=== PATIENT | female | born 1955 | race Two or more races ===

== ENCOUNTER 2024-12-09 06:52 | Emergency (ER) | payer MEDICAID, OTHER ==
[~2024-12-09] VITALS: Ht 157.5 cm; Wt 1.0 kg
[~2024-12-09 06:52] MED LIST: [UNRECOGNIZED DRUG - REMARK]
[2024-12-09 07:35] LABS: BASOPHILS % (AUTO) 0.7 % (0.0-2.0); EOSINOPHILS % (AUTO) 3.7 % (1.0-6.0); HEMATOCRIT 40.9 % (36-46); HEMOGLOBIN 13.8 g/dL (12.0-16.0); MEAN CORPUSCULAR HEMOGLOBIN 30.9 pg (26.0-34.0); MEAN CORPUSCULAR HGB CONC 33.6 G/dL (31.0-37.0); MEAN CORPUSCULAR VOLUME 92 fL (80-100); MONOCYTES # (AUTO) 0.4 K/uL (0.1-1.0); MONOCYTES % (AUTO) 8.2 % (2.0-9.0); NEUTROPHILS # (AUTO) 1.9 K/uL (1.8-7.7); NEUTROPHILS % (AUTO) 43.4 % (40.0-70.0); PLATELET COUNT (AUTO) 181 K/uL (150-450); RED BLOOD CELL COUNT(AUTO) 4.46 MIL/uL (4.00-5.20); RED CELL DISTRIBUTION WIDTH 13.2 % (11.5-14.5); WHITE BLOOD COUNT (AUTO) 4.4 K/uL (4.5-11.0)
[2024-12-09 07:45] LABS: ANION GAP 8 mmol/L (8-16); CALCIUM, TOTAL 9.5 mg/dL (8.8-10.5); CARBON DIOXIDE 25 mmol/L (22-29); CHLORIDE 101 mmol/L (98-107); CREATININE 0.92 mg/dL (0.60-1.30); GLOMERULAR FILTR. RATE CALC > 60 mL/min (>60); GLUCOSE,RANDOM 115 mg/dL (70-110); POTASSIUM 3.6 mmol/L (3.5-5.1); SODIUM SERUM 134 mmol/L (136-145); UREA NITROGEN, BLOOD 14 mg/dL (7-18)
[2024-12-09 07:47] LABS: PROTHROMBIN TIME 11.1 SEC (9.4-11.6)
[2024-12-09] MEDS ORDERED: IOHEXOL 350 MG/ML 100 ML VIAL ONE (07:57)
[2024-12-09] MEDS ORDERED: SODIUM CHLORIDE 0.9% 100 ML ONE (07:57)
[2024-12-09 08:00] LABS: ALANINE AMINOTRANSFERASE 30 U/L (12-78); ALBUMIN 3.8 g/dL (3.4-5.0); ALKALINE PHOSPHATASE 79 U/L (46-116); ASPARTATE AMINOTRANSFERASE 29 U/L (15-37); BILIRUBIN,TOTAL 0.6 mg/dL (0.1-1.0); CHOL/HDL RATIO 3.2 (3.9-5.7); CHOLESTEROL 173 mg/dL (131-200); HDL CHOLESTEROL 54 mg/dL (40-60); LDL CHOL (CALC.) 100 mg/dL (0-130); TOTAL PROTEIN, SERUM 7.8 g/dL (6.4-8.2); TRIGLYCERIDES 94 mg/dL (15-150)
[2024-12-09 08:02] LABS: TROPONIN I-HIGH SENSITIVITY 4 ng/L (<51)
[2024-12-09] MEDS: ONDANSETRON HCL 4 MG/2 ML VIAL IVP ONE (08:03)
[2024-12-09] MEDS: ASPIRIN 81 MG CHEWABLE TABLET PO ONE (08:27)
[2024-12-09] MEDS: CLOPIDOGREL BISULFATE 75 MG TABLET PO ONE (08:27)
[2024-12-09 08:38] LABS: APPEARANCE,URINE CLEAR (CLEAR); BILIRUBIN,URINE NEGATIVE (NEGATIVE); COLOR,URINE LIGHT YELLOW (YELLOW); GLUCOSE, URINE (UA) NEGATIVE (NEGATIVE); KETONES,URINE NEGATIVE (NEGATIVE); LEUKOCYTE ESTERASE ,URINE NEGATIVE (NEGATIVE); NITRATE,URINE NEGATIVE (NEGATIVE); OCCULT BLOOD,URINE NEGATIVE (NEGATIVE); PH,URINE 6.5 (5.0-8.0); PH,URINE DRUG SCREEN 6.5 (5.0-8.0); PROTEIN,URINE NEGATIVE (NEGATIVE); SPECIFIC GRAVITIY, URINE 1.041 (1.003-1.030); UROBILINOGEN,URINE <=1.0 mg/dL (<=1.0)
[2024-12-09 08:46] LABS: ALCOHOL, URINE DRUG SCREEN NEGATIVE (NEGATIVE); AMPHET/METH SCREEN,URINE NEGATIVE (NEGATIVE); BARBITURATE SCREEN, URINE NEGATIVE (NEGATIVE); BENZODIAZEPINES SCREEN,URINE NEGATIVE (NEGATIVE); CANNABINOID SCREEN,URINE NEGATIVE (NEGATIVE); COCAINE SCREEN,URINE NEGATIVE (NEGATIVE); METHADONE SCREEN, URINE NEGATIVE (NEGATIVE); OPIATE SCREEN,URINE NEGATIVE (NEGATIVE); PHENCYCLIDINE SCREEN,URINE NEGATIVE (NEGATIVE)
[2024-12-09 08:50] LABS: COVID AG,FIA SOURCE NASAL SWAB
[2024-12-09 08:56] LABS: BACTERIA,URINE None Seen /HPF (None Seen); RBC,URINE None Seen /HPF (0-2); SQUAMOUS EPITHELIAL CELL,UR None Seen /LPF (None Seen); WBC,URINE 0-2 /HPF (0-5)
[2024-12-09 09:16] LABS: INFLUENZA TYPE A NEGATIVE FOR TYPE A (NEGATIVE); INFLUENZA TYPE B NEGATIVE FOR TYPE B (NEGATIVE); SARS-COV2 (COVID) ANTIGEN,FIA Negative (Negative)
[2024-12-09 11:17] VITALS: BP 139/67; PULSE 60; RESP 18; O2SAT 97
== END 2024-12-09 11:40 | disposition short-term general hospital (02) ==
LOC: EMS 06:53
DX: I63.9 Cerebral infarction, unspecified (principal); R53.1 Weakness; F41.9 Anxiety disorder, unspecified; R47.81 Slurred speech; I10 Essential (primary) hypertension; Z88.0 Allergy status to penicillin; Z20.822 Contact with and (suspected) exposure to COVID-19
CPT/HCPCS: 99291; 72125; 96374; 71045; 87426; 80061; 80053; 81001; 84484; 85025; 85610; 85730; 87804; 86850; 86900; 86901; 36415; 70496; 70498; 82962; 93005; 80307; 70450; G0480; Q9967; J2405; J7050; 82948